=== PATIENT | male | born 2000 | race Two or more races ===

== ENCOUNTER 2024-08-31 09:45 | Emergency (ER) | payer MEDICAID, OTHER ==
[~2024-08-31] VITALS: Ht 175.3 cm; Wt 72.4 kg
[2024-08-31 10:22] VITALS: BP 129/89; PULSE 99; RESP 19; TEMP 98.9; O2SAT 99
--- NOTE | 2024-08-31 10:33 | ED.PDOC ---
GI ASSESSMENT HPI Comments A 23 YEAR OLD MALE PRESENTS TO THE ED WITH CHIEF COMPLAINT OF CONS TIPATION/ABDOMINAL CRAMPS. PATIENT REPORTS THAT HE HAS BEEN EXPERIENCING HARD, DIFFICULT BOWEL MOVEMENTS WITH ASSOCIATED PERIUMBILICAL ABDOMINAL CRAMPS FOR THE PAST 3 DAYS. PATIENT RELAYS THAT HE HAD SIMILAR PROBLEMS IN THE PAST, HOWEVER, STOOL SOFTENER RELIEVED HIS SYMPTOMS. PATIENT STATES HE IS ABLE TO MAKE A BOWEL MOVEMENT DAILY, BUT IT IS HARD AND SMALL. PATIENT DENIES ANY N/V/D, DIZZINESS, FEVER, CHILLS, OR RECTAL BLEEDING. NO OTHER SYMPTOMS REPORTED AT THIS TIME OF CARE. Chief Complaint: Constipation Time Seen by MD: 10:30 Primary Care Provider: NONE Reviewed Notes: Nurses Notes, Medications, Allergies Home Meds Active Scripts Lactulose (Lactulose) 10 Gm/15 Ml Capri, 30 ML PO BID, #[id number] ML Prov:MAXIME EVERETT 08/31/24 Information Source: Patient Mode of Arrival: Ambulatory Timing: Days Duration: Since onset Prehospital treatment: None Quality: Aching Vomitus: None Stool: Impaction Severity: Mild Recent: None Recent Hx of: Constipation Pain Location: Suprapubic Modifying Factors: Nothing Associated sign and symptoms: Constipation Past Medical History PAST MEDICAL HISTORY: Denies Surgical History: Denies all surgeries Family History Family History: Reviewed,noncontributory to illness Social History Smoker: Non-Smoker Alcohol: Denies ETOH Use Drugs: Denies Drug Use Lives In: Home Constitutional: denies: chills, diaphoresis, fatigue, fever, malaise, sweats, weakness, others EENTM: denies: blurred vision, double vision, ear bleeding, ear discharge, ear drainage, ear pain, ear ringing, eye pain, eye redness, hearing loss, mouth pain, mouth swelling, nasal discharge, nose bleeding, nose congestion, nose pain, photophobia, tearing, throat pain, throat swelling, voice changes, others Respiratory: denies: cough, hemoptysis, orthopnea, SOB at rest, shortness of breath, SOB with excertion, stridor, wheezing, others Cardiovascular: denies: chest pain, dizzy spells, diaphoresis, Dyspnea on exertion, edema, irregular heart beat, left arm pain, lightheadedness, palpitations, PND, syncope, others Gastrointestinal: reports: abdominal pain (CRAMPS), constipated; denies: abdomen distended, blood streaked bowels, diarrhea, dysphagia, difficulty swallowing, hematemesis, melena, nausea, poor appetite, poor fluid intake, rectal bleeding, rectal pain, vomiting, others Genitourinary: denies: burning, dysuria, flank pain, frequency, hematuria, incontinence, penile discharge, penile sore, pain, testicle pain, testicle s welling, urgency, others Neurological: denies: dizziness, fainting, headache, left sided numbness, left sided weakness, numbness, paresthesia, pre-existing deficit, right sided numbness, right sided weakness, seizure, speech problems, tingling, tremors, weakness, others Musculoskeletal: denies: back pain, gout, joint pain, joint swelling, muscle pain, muscle stiffness, neck pain, others Integumetry: denies: bruises, change in color, change in hair/nails, dryness, laceration, lesions, lumps, rash, wounds, others Allergic/Immunocompromised: denies: Difficulty Healing, Frequent Infections, Hives, Itching, others Hematologic/Lymphatic: denies: anemia, blood clots, easy bleeding, easy bruising, swollen glands, others Endocrine: denies: excessive hunger, excessive sweating, excessive thirst, excessive urination, flushing, intolerance to cold, intolerance to heat, unexplained weight gain, unexplained weight loss, others Psychiatric: denies: anxiety, bipolar disorder, depression, hopeless, panic disorder, schizophrenia, sleepless, suicidal, others All Other Systems: Reviewed and Negative Physical Exam General Appearance: No Apparent Distress, Normal HEENT: Normal ENT Inspection, PERRL/EOMI Neck: Full Range of Motion, Non-Tender, Normal, Normal Inspection Respiratory: Chest Non-Tender, Lungs Clear, No Accessory Muscle Use, No Respiratory Distress, Normal Breath Sounds Cardiovascular: No Edema, No JVD, No Murmur, No Gallop, Normal Peripheral Pulses, Regular Rate/Rhythm Breast Exam: Deferred Gastrointestinal: No Organomegaly, Non Tender, No Pulsatile Mass, Normal Bowel Sounds, Soft Genitalia: Deferred Pelvic: Deferred Rectal: Deferred Extremities: No calf tenderness, Normal capillary refill, Normal inspection, Normal range of motion, Non-tender, No pedal edema Musculoskeletal : Apperance: Normal Neurologic: Alert, supervisor precision optical elements II-XII nml as Tested, No Motor Deficits, Normal Affect, Normal Mood, No Sensory Deficits Cerebellar Function: Normal Reflexes: Normal Skin: Dry, Normal Color, Warm Peripheral Pulses: 2+ carotid (R), 2+ carotid (L) Lymphatic: No Adenopathy Was a procedure done? Was a procedure done?: No GI differential Dx Differential Diagnosis: Constipation, UTI, Urolithiasis X-Ray, Labs, Meds, VS Vital Signs Date Time Temp Pulse Resp B/P (MAP) Pulse Ox O2 Delivery O2 Flow Rate FiO2 08/31/24 10:22 99 19 99 Room Air 08/31/24 10:22 98.9 99 19 129/89 (102) 99 98.9 08/31/24 09:59 99.4 94 18 125/89 (101) 97 99.4 Current Medications Medications (Trade) Dose Ordered Sig/Rosanna Route Start Time Stop Time Status Last Admin Lactulose 60 ml ONCE ONCE PO 08/31/24 10:45 08/31/24 10:46 DC 08/31/24 10:51 XR KUB: FINDINGS: Patchy gas is identified within nondistended small bowel. There are no dilated small bowel loops. There is no abdominal mass effect. The renal and liver shadows are not enlarged. IMPRESSION: Mild colonic fecal burden. No acute intra-abdominal process. X-Ray, Labs, Meds, VS Comment EXTERNAL MEDICAL RECORDS REVIEWED: [NONE] INDEPENDENT HISTORIANS: [NONE] SOCIAL DETERMINANTS OF HEALTH: [NONE] LABS ORDERED: NONE REVIEWED AND INTERPRETED RESULTS: XR KUB IMAGING ORDERED: XR KUB TREATMENTS ORDERED: LACTULOSE 60ML PO PROCEDURES PERFORMED: NONE CRITICAL CARE TIME: NONE I HAVE DISCUSSED THE PATIENT WITH THE ATTENDING PHYSICIAN DR. WELLS] AND HE AGREES WITH THE PATIENT'S PLAN OF CARE AND DISPOSITION. BASED ON HISTORY OF PRESENT ILLNESS, AND PHYSICAL EXAM, PATIENT WILL BE DISCHARGED HOME. DISCUSSED PLAN FOR DISCHARGE HOME WITH RX LACTULOSE. MEDICATION WARNINGS GIVEN. SHARED DECISION MAKING: DISCUSSED WITH PATIENT THAT THEIR WORKUP WAS NORMAL. PATIENT INSTRUCTED TO FOLLOW UP WITH PRIMARY CARE PROVIDER IN 1-2 DAYS FOR RE- EVALUATION OF SYMPTOMS. PATIENT VERBALIZES UNDERSTANDING TO RETURN TO ED FOR NEW OR WORSENING SYMPTOMS OR IF FOLLOW UP WITH PCP CANNOT BE OBTAINED. PATIENT FEELS COMFORTABLE GOING HOME AT THIS TIME. ALL QUESTIONS ADDRESSED AT TIME OF DISCHARGE. Time of 1ST Reevaluation: 10:45 Reevaluation 1ST: Unchanged Patient Education/Counseling: Diagnosis, Treatment, Need For Follow Up Family Education/Counseling: Diagnosis, Treatment, No Family Present Medical Screening: No EMC Exist At This Time Departure 1 Departure Time of Disposition: 11:00 Impression: Primary Impression: Constipation Qualified Codes: K59.00 - Constipation, unspecified Disposition: HOME / SELF CARE / HOMELESS Condition: Stable Additional Instructions: FOLLOW-UP WITH PCP IN 1 TO 2 DAYS. TAKE MEDICATIONS PRESCRIBED. RETURN TO ED FOR ANY NEW OR WORSENING SYMPTOMS. e-Prescriptions Lactulose (Lactulose) 10 Gm/15 Ml Capri 30 ML PO BID, #[id number] ML Prov: MAXIME EVERETT 08/31/24 Discharged With: Self Critical Care Note Critical Care Time?: No Stability Stability form required: No Heart Score Heart Score: Heart Score Response (Comments) Value History N/A 0 EKG N/A 0 Age N/A 0 Risk Factors N/A 0 Troponin N/A 0 Total 0 I personally scribed for MAXIME EVERETT ([email or web address]) on 08/31/24 at 10:33. Electronically submitted by Go Farrar ([email or web address]). I personally scribed for MAXIME EVERETT ([email or web address]) on 08/31/24 at 10:40. Electronically submitted by Go Farrar ([email or web address]). I personally scribed for MAXIME EVERETT ([email or web address]) on 08/31/24 at 10:58. Electronically submitted by Go Farrar ([email or web address]). MAXIME EVERETT Aug 31, 2024 10:33
[2024-08-31] MEDS: LACTULOSE 20Gm/30ML SOLN PO ONE (10:51)
--- NOTE | 2024-08-31 10:51 | DVH ---
XY KUB ABDOMEN SINGLE VIEW HISTORY: CONSTIPATION TECHNICAL DATA: 1 view of the abdomen. COMPARISON: None FINDINGS: Patchy gas is identified within nondistended small bowel. There are no dilated small bowel loops. Th ere is no abdominal mass effect. The renal and liver shadows are not enlarged. IMPRESSION: Mild colonic fecal burden. No acute intra-abdominal process.
[2024-08-31] MEDS ORDERED: LACT10SO3 PO (11:00)
== END 2024-08-31 11:03 | disposition home or self-care (01) ==
LOC: ER 09:45
DX: K59.00 Constipation, unspecified (principal); R10.33 Periumbilical pain
CPT/HCPCS: 74018